=== PATIENT | male | born 1990 | race Hispanic/Latino ===

== ENCOUNTER 2024-04-26 18:42 | Emergency (ER) | payer OTHER ==
[~2024-04-26] VITALS: Ht 182.9 cm; Wt 63.5 kg
[2024-04-26] MEDS: ACETAMINOPHEN 325 MG TAB PO ONE (20:08)
[2024-04-26 21:47] VITALS: PULSE 96; RESP 18; TEMP 99.9
[2024-04-26] MEDS ORDERED: IBUPROFEN 600 MG TAB ONE (21:54)
[2024-04-26] MEDS: IBUPROFEN 600 MG TAB PO STA (22:02)
[2024-04-26] MEDS ORDERED: ONDANSETRON ODT4 MG PO (22:46)
[2024-04-26 22:52] VITALS: BP 100/55; PULSE 85; RESP 16; TEMP 98.8; O2SAT 100
== END 2024-04-26 22:53 | disposition home or self-care (01) ==
LOC: FSED 20:24
DX: R50.9 Fever, unspecified (principal); B34.9 Viral infection, unspecified; R11.0 Nausea; R51.9 Headache, unspecified; M79.18 Myalgia, other site; Z11.52 Encounter for screening for COVID-19
CPT/HCPCS: 0223U; 83518; 87400; 99283